=== PATIENT | female | born 1980 | race African-American/Black ===

== ENCOUNTER 2017-05-15 13:12 | Emergency (ER) | payer SELFPAY ==
[~2017-05-15] VITALS: Ht 175.3 cm; Wt 136.1 kg
[2017-05-15 13:50] VITALS: BP 151/66
[2017-05-15] MEDS ORDERED: IV NORMAL SALINE 1000ML BAG 1,000 ML IV SCH (14:30)
[2017-05-15 15:27] LABS: BASO # 0.1 x10^3/uL (0.0-0.2); BASO % 1 % (0-3); EOS % 1 % (0-3); HEMATOCRIT 35.7 % (36.0-47.0); HEMOGLOBIN 11.6 g/dL (12.0-15.5); LYMPH # 2.7 x10^3/uL (1.0-4.8); LYMPH % 38 % (24-48); MEAN CORPUSCULAR HEMOGLOBIN 26 pg (25-35); MEAN CORPUSCULAR HGB CONC 33 g/dL (31-37); MEAN CORPUSCULAR VOLUME 79 fL (79-100); MONO % 9 % (0-9); NEUT % 51 % (31-73); PLATELET COUNT 186 x10^3/uL (140-400); RED CELL DISTRIBUTION WIDTH 13.9 % (11.5-14.5); WHITE BLOOD COUNT 7.1 x10^3/uL (4.0-11.0)
[2017-05-15 15:38] LABS: CALCIUM 8.9 mg/dL (8.5-10.1); CREATININE 0.6 mg/dL (0.6-1.0); GFR 136.9; POTASSIUM 3.9 mmol/L (3.5-5.1)
--- NOTE | 2017-05-15 15:42 | RAD ---
Indication . Abdominal pain. Obstetrical ultrasound examination was performed. No prior imaging is available associated with this . There is a single, viable, IUP. heart rate of 153 was documented. The biparietal diameter of 5.9 cm, head circumference of 22.3 cm, abdominal circumference of 21 cm and femoral length of 4.4 cm are compatible with a gestational age of approximately 24 weeks 4 days. By sonographic analysis the expected date of confinement is 08/31/2017. The estimated weight is approximately 750 g. The amount of amniotic fluid appears normal. The placenta is predominantly fundal. The current presentation is vertex. The maternal cervix was not well demonstrated on this examination. There was a three-vessel cord. A 4 chambered heart was not confirmed. No gross anomalies were seen but a full survey was not performed. IMPRESSION: Single, viable, IUP of approximately 24 weeks 4 days gestation
[2017-05-15 15:44] LABS: ALBUMIN 2.9 g/dL (3.4-5.0); ALBUMIN/GLOBULIN RATIO 0.6 (1.0-1.7); TOTAL BILIRUBIN 0.1 mg/dL (0.2-1.0); TOTAL PROTEIN 7.5 g/dL (6.4-8.2)
[2017-05-15 16:17] LABS: BILIRUBIN,URINE NEGATIVE (NEG); GLUCOSE,URINE NEGATIVE (NEG); NITRITE,URINE NEGATIVE (NEG); PH,URINE 6.5; PROTEIN,URINE NEGATIVE (NEG-TRACE)
[2017-05-15 16:24] LABS: BACTERIA,URINE MODERATE /HPF (0-FEW); RBC,URINE 0 /HPF (0-2); SQUAMOUS EPITHELIAL CELL,UR MOD /LPF; TRICHOMONAS,URINE PRESENT
[2017-05-15] MEDS ORDERED: metroNIDAZOLE 500 MG TABLET PO ONE (16:45)
[2017-05-15] MEDS ORDERED: cefTRIAXone IM 250 MG VIAL IM ONE (17:00)
[2017-05-15] MEDS ORDERED: AZITHROMYCIN 250 MG TABLET. PO ONE (17:00)
[2017-05-15] MEDS ORDERED: PNV1TABL34 PO (17:06)
--- NOTE | 2017-05-15 17:33 | ED.ADGEN ---
Past Medical History Past Medical History: No Pertinent History Past Surgical History: Other Additional Past Surgical Histo: RT ANKLE SURGERY Additional Information: 1.5 PPD Alcohol Use: None Drug Use: None Adult General Chief Complaint Chief Complaint: ABDOMINAL PAIN IN HPI HPI Patient is a 37 year old woman, history of irregular periods, who presents to the emergency department with abdominal pain and vaginal spotting, with a positive test in the emergency department, which makes her . Patient states her last muscle. She believes was in November, but she has a history of irregularity as stated and offer and goes months without menses. Patient was not aware that she was . She states that this afternoon she began experiencing lower abdominal cramping, and spotting with bright red blood noted on toilet paper. Occasional white discharge. No passage of clots or fluid , states currently she describes mild abdominal cramping. She denies concerns for STI exposures, denies any injuries, any nausea or vomiting, any swelling extremities, any urinary complaints, any back or flank pain, any weakness, numbness, tingling, chest pain, shortness breath or other complaints. History of 4 previous complicated pregnancies. Does not currently have an POLLS OR SURVEYS INTERVIEWER, is not taking vitamins. Review of Systems Review of Systems Constitutional: Denies fever or chills. [] Eyes: Denies change in visual acuity. [] HENT: Denies nasal congestion or sore throat. [] Respiratory: Denies cough or shortness of breath. [] Cardiovascular: Denies chest pain or edema. [] GI: Denies abdominal pain, nausea, vomiting, bloody stools or diarrhea. [] : Denies dysuria. [] Musculoskeletal: Denies back pain or joint pain. [] Integument: Denies rash. [] Neurologic: Denies headache, focal weakness or sensory changes. [] Endocrine: Denies polyuria or polydipsia. [] Lymphatic: Denies swollen glands. [] Psychiatric: Denies depression or anxiety. [] Current Medications Current Medications Current Medications Medications (Trade) Dose Ordered Sig/Lynette Start Time Stop Time Status Last Admin Dose Admin Azithromycin (Zithromax) 1,000 mg 1X ONCE 05/15/17 17:00 05/15/17 17:01 DC 05/15/17 17:10 1,000 MG Ceftriaxone Sodium (Rocephin Im) 250 mg 1X ONCE 05/15/17 17:00 05/15/17 17:01 DC 05/15/17 17:10 250 MG Metronidazole (Flagyl) 2,000 mg 1X ONCE 05/15/17 16:45 05/15/17 16:47 DC 05/15/17 16:55 2,000 MG Sodium Chloride 1,000 ml @ 1,000 mls/hr Q1H 05/15/17 14:30 05/15/17 15:29 DC 05/15/17 15:26 1,000 MLS/HR Allergies Allergies Allergies Coded Allergies Type Severity Reaction Last Updated Verified No Known Drug Allergies 05/15/17 No Physical Exam Physical Exam Constitutional: Well developed, well nourished, no acute distress, non-toxic appearance. [] HENT: Normocephalic, atraumatic, bilateral external ears normal, oropharynx moist, no oral exudates, nose normal. [] Eyes: PERRLA, EOMI, conjunctiva normal, no discharge. [] Neck: Normal range of motion, no tenderness, supple, no stridor. [] Cardiovascular:Heart rate regular rhythm, no murmur, S1, S2, no rubs or gallops. [] Lungs & Thorax: Bilateral breath sounds clear to auscultation, no wheezing, rhonchi, rales. No chest wall crepitus or tenderness. [] Abdomen: Bowel sounds normal, soft, obese, mild tenderness to palpation in the pelvic region, no rebound, rigidity, no guarding, no masses, no pulsatile masses. [] Skin: Warm, dry, no erythema, no rash. [] Back: No tenderness, no CVA tenderness. [] Extremities: No tenderness, no cyanosis, no clubbing, ROM intact, no edema. Negative Homans sign. [] Neurologic: Alert and oriented X 3, normal motor function, normal sensory function, no focal deficits noted. [] Psychologic: Affect normal, judgement normal, mood normal. [] Pelvic examination: Normal-appearing external examination, bimanual examination reveals a closed internal os, small amount of white discharge noted on glove, patient comfortable during examination, but patient with no CMT, no adnexal tenderness or masses identified. Specimens taken without issue, normal- appearing nonfriable cervix. Current Patient Data Vital Signs Vital Signs Date Time Temp Pulse Resp B/P (MAP) Pulse Ox O2 Delivery O2 Flow Rate FiO2 05/15/17 13:50 98.3 93 20 151/66 (94) 98 Room Air 98.3 Lab Values Laboratory Tests Test 05/15/17 12:58 05/15/17 13:49 05/15/17 15:20 POC Urine HCG, Qualitative Hcg positive (Negative) Urine Collection Type Unknown Urine Color Yellow Urine Clarity Clear Urine pH 6.5 Urine Specific [place] 1.025 Urine Protein Negative mg/dL (NEG-TRACE) Urine Glucose (UA) Negative mg/dL (NEG) Urine Ketones (Stick) Negative mg/dL (NEG) Urine Blood Negative (NEG) Urine Nitrite Negative (NEG) Urine Bilirubin Negative (NEG) Urine Urobilinogen Dipstick 1.0 mg/dL (0.2 mg/dL) Urine Leukocyte Esterase Small (NEG) Urine RBC 0 /HPF (0-2) Urine WBC 1-4 /HPF (0-4) Urine Squamous Epithelial Cells Mod /LPF Urine Bacteria Moderate /HPF (0-FEW) Urine Mucus Mod /LPF Urine Trichomonas Present White Blood Count 7.1 x10^3/uL (4.0-11.0) Red Blood Count 4.50 x10^6/uL (3.50-5.40) Hemoglobin 11.6 g/dL (12.0-15.5) L Hematocrit 35.7 % (36.0-47.0) L Mean Corpuscular Volume 79 fL (79-100) Mean Corpuscular Hemoglobin 26 pg (25-35) Mean Corpuscular Hemoglobin Concent 33 g/dL (31-37) Red Cell Distribution Width 13.9 % (11.5-14.5) Platelet Count 186 x10^3/uL (140-400) Neutrophils (%) (Auto) 51 % (31-73) Lymphocytes (%) (Auto) 38 % (24-48) Monocytes (%) (Auto) 9 % (0-9) Eosinophils (%) (Auto) 1 % (0-3) Basophils (%) (Auto) 1 % (0-3) Neutrophils # (Auto) 3.6 x10^3uL (1.8-7.7) Lymphocytes # (Auto) 2.7 x10^3/uL (1.0-4.8) Monocytes # (Auto) 0.7 x10^3/uL (0.0-1.1) Eosinophils # (Auto) 0.1 x10^3/uL (0.0-0.7) Basophils # (Auto) 0.1 x10^3/uL (0.0-0.2) Sodium Level 138 mmol/L (136-145) Potassium Level 3.9 mmol/L (3.5-5.1) Chloride Level 104 mmol/L (98-107) Carbon Dioxide Level 23 mmol/L (21-32) Anion Gap 11 (6-14) Blood Urea Nitrogen 7 mg/dL (7-20) Creatinine 0.6 mg/dL (0.6-1.0) Estimated GFR (Cockcroft-Gault) 136.9 BUN/Creatinine Ratio 12 (6-20) Glucose Level 79 mg/dL (70-99) Calcium Level 8.9 mg/dL (8.5-10.1) Total Bilirubin 0.1 mg/dL (0.2-1.0) L Aspartate Amino Transferase (AST) 17 U/L (15-37) Alanine Aminotransferase (ALT) 17 U/L (14-59) Alkaline Phosphatase 59 U/L (46-116) Total Protein 7.5 g/dL (6.4-8.2) Albumin 2.9 g/dL (3.4-5.0) L Albumin/Globulin Ratio 0.6 (1.0-1.7) L Laboratory Tests 05/15/17 15:20 Laboratory Tests 05/15/17 15:20 Microbiology 05/15/17 Wet Prep - Final, Complete EKG EKG Not indicated. [] Radiology/Procedures Radiology/Procedures [][facility] [address] [place] [address] IMAGING REPORT Signed PATIENT: ROSIE WILKERSON ACCOUNT: [id number] : 1980 LOCATION: ER AGE: 37 SEX: F EXAM STATUS: REG ER ORD. PHYSICIAN: PREET SOLOMON DO REASON: + Preg/abd pain PROCEDURE: PREG MORE THAN OR EQ TO 14 WKS Indication . Abdominal pain. Obstetrical ultrasound examination was performed. No prior imaging is available associated with this . There is a single, viable, IUP. heart rate of 153 was documented. The biparietal diameter of 5.9 cm, head circumference of 22.3 cm, abdominal circumference of 21 cm and femoral length of 4.4 cm are compatible with a gestational age of approximately 24 weeks 4 days. By sonographic analysis the expected date of confinement is 08/31/2017. The estimated weight is approximately 750 g. The amount of amniotic fluid appears normal. The placenta is predominantly fundal. The current presentation is vertex. The maternal cervix was not well demonstrated on this examination. There was a three-vessel cord. A 4 chambered heart was not confirmed. No gross anomalies were seen but a full survey was not performed. IMPRESSION: Single, viable, IUP of approximately 24 weeks 4 days gestation DICTATED and SIGNED BY: RENA HOWELL MD DATE: 05/15/171536 CC: PREET SOLOMON DO; NO PCP ~ Course & Med Decision Making Course & Med Decision Making Pertinent Labs and Imaging studies reviewed. (See chart for details) Patient's laboratory studies and imaging did not reveal evidence of acutely concerning findings, patient noted be 24 weeks and 4 days on ultrasound. Patient has not yet become [facility] as stated, patient was noted to be positive for trichomoniasis on her urine. Wet prep was unremarkable. I did discuss the signs and patient, initially stated that she did not have any concerns for sexually transmitted infections, however after this information was relayed, patient was agreeable to receiving a. Treatment for chlamydia and gonorrhea, with ceftriaxone and azithromycin in the ED, and treatment for denies this with a 2 g dose of metronidazole. I did discuss treatment and above information with Dr. Palmer POLLS OR SURVEYS INTERVIEWER, patient is interested in receiving a tubal ligation after this delivery, he states that he'll follow with her in the office , his contact information was given. Patient was also given a prescription for vitamins, and a prescription for treatment with metronidazole seven- day course, for her partner, importance of following up with either a primary care provider, POLLS OR SURVEYS INTERVIEWER, or the health department for a full complement of STD testing for both the patient and her partner was discussed, along with avoidance of intercourse until they're cleared by their respective physicians. Patient voiced understanding and agreement with plan as stated, tolerating medications the ED without issue. Discharged home with instructions, prescriptions, and precautions as stated. Dragon Disclaimer Dragon Disclaimer This electronic medical record was generated, in whole or in part, using a voice recognition dictation system. Departure Impression: Primary Impression: Trichomoniasis Additional Impression: Vaginal bleeding in Disposition: HOME, SELF-CARE Condition: IMPROVED Scripts Pnv With Ca,No.72/Iron,Carb/Fa ( PLUS IRON TABLET) 1 Each Tablet 1 TAB PO DAILY, #90 TAB 3 Refills Prov: PREET SOLOMON DO 05/15/17 Problem Qualifiers PREET SOLOMON DO May 15, 2017 17:33
== END 2017-05-15 17:14 | disposition home or self-care (01) ==
LOC: ER 13:12
DX: O98.812 Other maternal infectious and parasitic diseases complicating pregnancy, second trimester (principal); A59.9 Trichomoniasis, unspecified; O46.92 Antepartum hemorrhage, unspecified, second trimester; O99.332 Smoking (tobacco) complicating pregnancy, second trimester; Z3A.24 24 weeks gestation of pregnancy
CPT/HCPCS: 76805; 80053; 81001; 81025; 85025; 86900; 86901; 87086; 96360; 96372; 99285; J0696; J7030; Q0111; Q0144; 36415; 87491; 87591

== ENCOUNTER 2017-08-03 11:35 | Observation (INO) | payer SELFPAY ==
[~2017-08-03 11:35] MED LIST: PNV1TABL34 PO
[2017-08-03] MEDS ORDERED: IV RINGERS,LACTATED 1000ML 1,000 ML IV SCH (12:12)
[2017-08-03 12:28] LABS: BILIRUBIN,URINE NEGATIVE (NEG); GLUCOSE,URINE NEGATIVE (NEG); NITRITE,URINE NEGATIVE (NEG); PH,URINE 7.5; PROTEIN,URINE NEGATIVE (NEG-TRACE)
[2017-08-03 12:32] LABS: BARBITURATES NEG (NEG); BENZODIAZEPINES NEG (NEG); CANNABINOIDS NEG (NEG); COCAINE NEG (NEG); METHADONE NEG (NEG); OPIATES NEG (NEG); PHENCYCLIDINE NEG (NEG)
[2017-08-03 12:37] LABS: BACTERIA,URINE FEW /HPF (0-FEW); RBC,URINE OCC /HPF (0-2); SQUAMOUS EPITHELIAL CELL,UR FEW /LPF
[2017-08-04 07:31] LABS: RPR REFLEX Non Reactive (Non Reactive)
[2017-08-04 14:25] LABS: HEP B SURFACE ABDY Non Reactive (.)
== END 2017-08-03 13:45 | disposition home or self-care (01) ==
LOC: 3 SO LND 11:35
PROVIDERS: ADMIT Obstetrics & Gynecology; ATTEND Obstetrics & Gynecology
DX: O26.893 Other specified pregnancy related conditions, third trimester (principal); R10.30 Lower abdominal pain, unspecified; Z3A.36 36 weeks gestation of pregnancy
CPT/HCPCS: 36415; 80307; 81001; 86593; 86706; 86762; 87653; G0378; G0379; G0479

== ENCOUNTER 2017-08-16 18:02 | Observation (INO) | payer OTHER ==
[2017-08-16] MEDS ORDERED: IV RINGERS,LACTATED 1000ML 1,000 ML IV SCH (18:23)
[2017-08-16 18:36] LABS: BILIRUBIN,URINE NEGATIVE (NEG); GLUCOSE,URINE NEGATIVE (NEG); NITRITE,URINE NEGATIVE (NEG); PH,URINE 6.5; PROTEIN,URINE NEGATIVE (NEG-TRACE); UROBILINOGEN,URINE 0.2 mg/dL (0.2 mg/dL)
[2017-08-16 18:46] LABS: BACTERIA,URINE FEW /HPF (0-FEW); SQUAMOUS EPITHELIAL CELL,UR MOD /LPF
[2017-08-16 18:51] LABS: BARBITURATES NEG (NEG); BENZODIAZEPINES NEG (NEG); CANNABINOIDS NEG (NEG); COCAINE NEG (NEG); METHADONE NEG (NEG); OPIATES NEG (NEG); PHENCYCLIDINE NEG (NEG)
== END 2017-08-16 19:48 | disposition home or self-care (01) ==
LOC: 3 SO LND 18:02
PROVIDERS: ADMIT Specialist; ATTEND Specialist
DX: O62.9 Abnormality of forces of labor, unspecified (principal); Z3A.38 38 weeks gestation of pregnancy
CPT/HCPCS: 80307; 81001; G0378; G0379; G0479

== ENCOUNTER 2017-08-24 22:22 | Observation (INO) | payer SELFPAY ==
[2017-08-24 22:52] LABS: BILIRUBIN,URINE NEGATIVE (NEG); GLUCOSE,URINE NEGATIVE (NEG); NITRITE,URINE NEGATIVE (NEG); PH,URINE 6.5; PROTEIN,URINE 100 mg/dL (NEG-TRACE)
[2017-08-24 22:58] LABS: BACTERIA,URINE MANY /HPF (0-FEW); RBC,URINE 0 /HPF (0-2)
[2017-08-24 22:59] LABS: BARBITURATES NEG (NEG); BENZODIAZEPINES NEG (NEG); CANNABINOIDS POS (NEG); COCAINE NEG (NEG); METHADONE NEG (NEG); OPIATES NEG (NEG); PHENCYCLIDINE NEG (NEG); SQUAMOUS EPITHELIAL CELL,UR FEW /LPF
[2017-08-24] MEDS ORDERED: IV RINGERS,LACTATED 1000ML 1,000 ML IV SCH (23:45)
--- NOTE | 2017-08-25 00:51 | RAD ---
Obstetric ultrasound limited: Reason for examination: with pain and pressure. Duodenum Thursday. No care. Check amniotic fluid, placenta, size and weight. Single viable intrauterine gestation is present. Placenta is located anterior with no evidence of previa or abruption. Placenta is a grade 3. activity is present with cardiac activity with a rate of 160 bpm. Fetus is in cephalic presentation. Amniotic fluid level is normal at 10 cm. Biparietal diameter is 9.26 cm corresponding to gestational age of 37 weeks 4 days. Head circumference is 34.26 cm corresponding to gestational age of 39 weeks 4 days. Abdominal circumference is 37.79 cm corresponding to gestational age of 41 weeks 5 days. Femur length is 7.84 cm corresponding to gestational age of 40 weeks 1 day. Head circumference to abdominal circumference ratio 0.91. Estimated weight is 9 lbs. 1 oz. Estimated gestational age is 39 weeks 5 days with estimated date of confinement of 08/26/2017. IMPRESSION: Single viable intrauterine gestation with a mean gestational age estimated at 39 weeks 5 days and estimated date of confinement of 08/26/2017. Fetus is in cephalic presentation. Placenta is anterior with no previa or abruption. Adequate amniotic fluid is present at 10 cm. weight is estimated at 9 lbs. 1 oz. Electronically signed by: Alma Falcon MD (08/25/2017 12:47 AM) [facility]
== END 2017-08-25 00:15 | disposition home or self-care (01) ==
LOC: 3 SO LND 22:22
PROVIDERS: ADMIT Obstetrics & Gynecology; ATTEND Obstetrics & Gynecology
DX: O62.9 Abnormality of forces of labor, unspecified (principal); Z3A.39 39 weeks gestation of pregnancy
CPT/HCPCS: 76815; 80307; 81001; 87086; G0378; G0379; G0479

== ENCOUNTER 2017-08-30 11:11 | Observation (INO) | payer SELFPAY ==
[~2017-08-30] VITALS: Ht 172.7 cm; Wt 166.0 kg
--- NOTE | 2017-08-30 12:38 | PDOC1 ---
OB - History Hx of Present Care: Limited Care Ultrasounds: Normal mid trimester US Obstetrical Complications: None Medical Complications: None Past Family/Social History * Past Medical, Surgical, Family and Obstetric Histories reviewed from chart. GBS Status: Positive OB - Chief Complaint & HPI Date of Admission: Date of Admission: Aug 30, 2017 at 11:11 Chief Complaint/History : 5 Para: 4 EGA: 39 Reason for admission: observation Indication for induction: post dates Admission Nurse Assessment Rev: Yes Problems: OB - Admission Exam Physical Exam HEENT: Normal Heart: Regular Rate Lungs: Clear Abdomen: Gravid, Non tender, Soft Extremities: Edema Reflexes: Normal Cervical Dilatation: Fingertip Effacement: 50% Station: -3 Membranes: Intact Heart Rate: Normal Accelerations: Accelerations Present Decelerations: No decelerations Contractions on Admission: >10 Minutes Apart Intensity: Mild Text A: 39wks + 6 days IUP Previous LGA infants P: Plan for U/S for PRETTY. If PRETTY low, then IOL started today. If PRETTY normal, then IOL tomorrow evening for post dates. GI GILMAN Jr, MD Aug 30, 2017 12:38
--- NOTE | 2017-08-30 14:09 | RAD ---
OB > 14 WKS W/TV History:Check PRETTY and weight Comparison: 08/24/2017 Findings:Multiple transabdominal sonographic images of the uterus are submitted. Biometry data are as follows: Abdominal circumference 36.3 cm corresponds with 40 weeks 2 days. Femur length 7.8 cm corresponds 40 weeks 1 day. Biparietal diameter 9.3 cm corresponds 37 weeks 6 days Head circumference 33.8 cm corresponding 38 weeks 6 days HC/AC ratio 0.93 Adjusted ultrasound age 39 weeks 2 days with estimated delivery date of 09/04/2017. Estimated weight 3869 g +/- 573 g. Cervix measured 3.95 cm in length. PRETTY is estimated at 13.3 cm. heart rate 137 bpm. Amniotic fluid volume is also subjectively within normal limits. anatomy was not evaluated. movement was noted. There is cephalic presentation. There is anterior and right lateral placenta. Adnexal regions are not demonstrated. Impression: 1.Amniotic fluid volume is within normal limits. Estimated weight was 3869 g +/- 573 g. There is cephalic presentation of the single intrauterine fetus.
[2017-08-30 14:12] LABS: BILIRUBIN,URINE SMALL (NEG); GLUCOSE,URINE NEGATIVE (NEG); NITRITE,URINE NEGATIVE (NEG); PROTEIN,URINE NEGATIVE (NEG-TRACE)
[2017-08-30 14:18] LABS: BACTERIA,URINE MODERATE /HPF (0-FEW); BARBITURATES NEG (NEG); BENZODIAZEPINES NEG (NEG); CANNABINOIDS NEG (NEG); COCAINE NEG (NEG); METHADONE NEG (NEG); OPIATES NEG (NEG); PHENCYCLIDINE NEG (NEG); RBC,URINE 0 /HPF (0-2); SQUAMOUS EPITHELIAL CELL,UR MOD /LPF
== END 2017-08-30 14:00 | disposition home or self-care (01) ==
LOC: 3 SO LND 11:11
PROVIDERS: ADMIT Obstetrics & Gynecology; ATTEND Obstetrics & Gynecology
DX: O62.9 Abnormality of forces of labor, unspecified (principal); Z3A.39 39 weeks gestation of pregnancy; O26.893 Other specified pregnancy related conditions, third trimester; R12 Heartburn
CPT/HCPCS: 76805; 76817; 80307; 81001; G0378; G0379; 87086; G0479

== ENCOUNTER 2018-02-07 10:21 | Emergency (ER) | payer OTHER ==
[2018-02-07 10:44] LABS: URINE HCG POC HCG NEGATIVE (Negative)
[2018-02-07 11:05] LABS: BILIRUBIN,URINE NEGATIVE (NEG); CLARITY,URINE CLEAR; COLOR,URINE AMBER; GLUCOSE,URINE NEGATIVE (NEG); NITRITE,URINE NEGATIVE (NEG); PROTEIN,URINE 30 mg/dL (NEG-TRACE); UROBILINOGEN,URINE 0.2 mg/dL (0.2 mg/dL)
[2018-02-07 11:12] LABS: BARBITURATES NEG (NEG); BENZODIAZEPINES NEG (NEG); CANNABINOIDS POS (NEG); COCAINE POS (NEG); METHADONE NEG (NEG); OPIATES NEG (NEG); PHENCYCLIDINE NEG (NEG)
[2018-02-07] MEDS: IV NORMAL SALINE 1000ML BAG 1,000 ML IV (11:13)
[2018-02-07] MEDS: ONDANSETRON PF 4 MG/2 ML VIAL. IV (11:13)
[2018-02-07] MEDS: FAMOTIDINE 20 MG TABLET. PO (11:13)
[2018-02-07 11:15] LABS: BACTERIA,URINE FEW /HPF (0-FEW); RBC,URINE RARE /HPF (0-2); SQUAMOUS EPITHELIAL CELL,UR FEW /LPF
[2018-02-07 11:19] LABS: ADD MAN DIFF? NO
[2018-02-07 11:23] LABS: AMPHETAMINE/METHAMPHETAMINE POS (NEG); ETHANOL, URINE NEG (NEG)
[2018-02-07 11:28] LABS: BASO % 1 % (0-3); EOS % 1 % (0-3); HEMATOCRIT 37.3 % (36.0-47.0); HEMOGLOBIN 12.5 g/dL (12.0-15.5); LYMPH # 2.9 x10^3/uL (1.0-4.8); LYMPH % 51 % (24-48); MEAN CORPUSCULAR HEMOGLOBIN 26 pg (25-35); MEAN CORPUSCULAR HGB CONC 34 g/dL (31-37); MEAN CORPUSCULAR VOLUME 78 fL (79-100); MONO # 0.5 x10^3/uL (0.0-1.1); MONO % 9 % (0-9); NEUT # 2.1 x10^3uL (1.8-7.7); NEUT % 38 % (31-73); PLATELET COUNT 225 x10^3/uL (140-400); RED BLOOD COUNT 4.78 x10^6/uL (3.50-5.40); RED CELL DISTRIBUTION WIDTH 12.9 % (11.5-14.5); WHITE BLOOD COUNT 5.7 x10^3/uL (4.0-11.0)
[2018-02-07 11:34] LABS: ANION GAP 8 (6-14); BLOOD UREA NITROGEN 14 mg/dL (7-20); BUN/CREATININE RATIO 14 (6-20); CALCIUM 9.4 mg/dL (8.5-10.1); CARBON DIOXIDE 28 mmol/L (21-32); CHLORIDE 104 mmol/L (98-107); GFR 75.9; GLUCOSE 126 mg/dL (70-99); POTASSIUM 3.4 mmol/L (3.5-5.1); SODIUM 140 mmol/L (136-145)
[2018-02-07 11:37] LABS: ETHANOL < 10 mg/dL (0-10)
[2018-02-07 11:39] LABS: ALBUMIN 3.3 g/dL (3.4-5.0); ALBUMIN/GLOBULIN RATIO 0.8 (1.0-1.7); ALK PHOS 74 U/L (46-116); ALT (SGPT) 24 U/L (14-59); AST (SGOT) 32 U/L (15-37); LIPASE 76 U/L (73-393); TOTAL BILIRUBIN 0.3 mg/dL (0.2-1.0); TOTAL PROTEIN 7.6 g/dL (6.4-8.2)
== END 2018-02-07 13:50 | disposition home or self-care (01) ==
LOC: ER 13:50
DX: N30.00 Acute cystitis without hematuria (principal); R42 Dizziness and giddiness; F12.10 Cannabis abuse, uncomplicated; F14.10 Cocaine abuse, uncomplicated; F15.10 Other stimulant abuse, uncomplicated
CPT/HCPCS: 36415; 80053; 80307; 81001; 81025; 83690; 85025; 96361; 96374; 99285-25; G0480; J2405; J7030

== ENCOUNTER 2020-05-14 19:56 | Emergency (ER) | payer MEDICAID, OTHER ==
[~2020-05-14] VITALS: Ht 172.7 cm; Wt 127.3 kg
[~2020-05-14 19:56] MED LIST changes: +ONDA4TAB10 SL; +SULF1TAB24 PO
[2020-05-14 21:18] LABS: BILIRUBIN,URINE NEGATIVE (NEG); CLARITY,URINE CLEAR; COLOR,URINE YELLOW; NITRITE,URINE NEGATIVE (NEG); PH,URINE 5.5 (<5.0-8.0); PROTEIN,URINE NEGATIVE (NEG-TRACE); UROBILINOGEN,URINE 0.2 mg/dL (0.2 mg/dL)
[2020-05-14 21:28] LABS: BACTERIA,URINE MODERATE /HPF (0-FEW); RBC,URINE 0 /HPF (0-2); SQUAMOUS EPITHELIAL CELL,UR FEW /LPF
[2020-05-14 21:30] VITALS: BP 158/81
--- NOTE | 2020-05-14 21:43 | PHYS DOC ---
Past Medical History Past Medical History: No Pertinent History Past Surgical History: Other Additional Past Surgical Histo: RT ANKLE SURGERY Smoking Status: Current Every Day Smoker Alcohol Use: None Drug Use: None General Adult EDM: Chief Complaint: SEXUALLY TRANSMITTED DISEASE HPI: HPI: Patient is a 40 year old female who presents with 1 day history of vaginal discharge and lower abdominal cramping. Symptoms are described as mild. Pain is nonradiating. Patient significant other was recently diagnosed with urethritis and told the patient about it today. Patient denies any fever vomiting. Patient denies any dysuria. Symptoms are worse with palpation. Review of Systems: Review of Systems: Constitutional: Denies fever or chills. [] Eyes: Denies change in visual acuity. [] HENT: Denies nasal congestion or sore throat. [] Respiratory: Denies cough or shortness of breath. [] Cardiovascular: Denies chest pain or edema. [] GI: Complains of lower abdominal pain but no nausea, vomiting, bloody stools or diarrhea. [] : Denies dysuria. But complains of vaginal discharge Musculoskeletal: Denies back pain or joint pain. [] Integument: Denies rash. [] Neurologic: Denies headache, focal weakness or sensory changes. [] Endocrine: Denies polyuria or polydipsia. [] Lymphatic: Denies swollen glands. [] Psychiatric: Denies depression or anxiety. [] Heart Score: Risk Factors: Risk Factors: DM, Current or recent (<one month) smoker, HTN, HLP, family history of CAD, obesity. Risk Scores: Score 0 - 3: 2.5% MACE over next 6 weeks - Discharge Home Score 4 - 6: 20.3% MACE over next 6 weeks - Admit for Clinical Observation Score 7 - 10: 72.7% MACE over next 6 weeks - Early Invasive Strategies Allergies: Allergies: Allergies Coded Allergies Type Severity Reaction Last Updated Verified No Known Drug Allergies 11/17/17 No Physical Exam: PE: Constitutional: Well developed, well nourished, no acute distress, non-toxic appearance. [] HENT: Normocephalic, atraumatic, bilateral external ears normal, no trismus, nose normal. [] Eyes: PERRLA, EOMI, conjunctiva normal, no discharge. [] Neck: Normal range of motion, no tenderness, supple, no stridor. [] Cardiovascular:Heart rate regular rhythm, peripheral pulses intact, cap refill brisk Lungs & Thorax: Bilateral breath sounds clear no respiratory distress Abdomen: soft, no tenderness, no masses, no pulsatile masses. [] exam: Preventive Medicine Officer present, mild cervical motion tender with mild vaginal discharge. External exam normal. Skin: Warm, dry, no erythema, no rash. [] Back: No tenderness, no CVA tenderness. [] Extremities: No tenderness, no cyanosis, no clubbing, ROM intact, no edema. [] Neurologic: Alert and oriented X 3, normal motor function, normal sensory function, no focal deficits noted. [] Psychologic: Affect normal, judgement normal, mood normal. [] Current Patient Data: Labs: Laboratory Tests Test 05/14/20 20:05 05/14/20 20:14 Urine Collection Type Void Urine Color Yellow Urine Clarity Clear Urine pH 5.5 (<5.0-8.0) Urine Specific [place] >=1.030 (1.000-1.030) Urine Protein Negative mg/dL (NEG-TRACE) Urine Glucose (UA) Negative mg/dL (NEG) Urine Ketones (Stick) Negative mg/dL (NEG) Urine Blood Negative (NEG) Urine Nitrite Negative (NEG) Urine Bilirubin Negative (NEG) Urine Urobilinogen Dipstick 0.2 mg/dL (0.2 mg/dL) Urine Leukocyte Esterase Negative (NEG) Urine RBC 0 /HPF (0-2) Urine WBC 11-20 /HPF (0-4) Urine Squamous Epithelial Cells Few /LPF Urine Bacteria Moderate /HPF (0-FEW) Urine Mucus Slight /LPF POC Urine HCG, Qualitative Hcg negative (Negative) Vital Signs: Vital Signs Date Time Temp Pulse Resp B/P (MAP) Pulse Ox O2 Delivery O2 Flow Rate FiO2 05/14/20 21:30 98.5 72 16 158/81 (106) 97 Room Air 98.5 EKG: EKG: [] Radiology/Procedures: Radiology/Procedures: [] Course & Med Decision Making: Course & Med Decision Making Pertinent Labs and Imaging studies reviewed. (See chart for details) [] 40-year-old female presents with vaginal discharge. Patient has trichomonas on her wet mount. Patient will be treated appropriately. Patient cover GC and chlamydia. Discussed with patient to make sure her partner is treated as well. Kishan Disclaimer: Kishan Disclaimer: This electronic medical record was generated, in whole or in part, using a voice recognition dictation system. Departure Departure Impression: Primary Impression: Trichomoniasis Disposition: 01 HOME, SELF-CARE Condition: STABLE Referrals: PCP 2-3 DAYS UNKNOWN PCP NAME (PCP) Patient Instructions: Trichomoniasis Additional Instructions: EMERGENCY DEPARTMENT GENERAL DISCHARGE INSTRUCTIONS THANK YOU for coming to [facility] Emergency Department (ED) today and trusting us with your care. We trust that you had a positive experience in our Emergency Department. If you wish to speak to the department Management you can contact the production department supervisor at . YOUR FOLLOW UP INSTRUCTIONS ARE FOLLOWS: Do you have a private doctor? If you do not have a private doctor, please ask for a resource list of physicians or clinics that may be able to assist you with follow up care. The Emergency Physician has interpreted your x-rays. The X-ray specialist will also review them. If there is a change in the findings you will be notified in 48 hours when at all possible. A lab test or lab culture may have been done, your results will be reviewed and you will be notified if you need a change in treatment. ADDITIONAL INSTRUCTIONS AND INFORMATION Your care today has been supervised by a physician who is specially trained in emergency care. Many problems require more than one evaluation for a complete diagnosis and treatment. We recommend that you schedule your follow up appointment as recommended to ensure complete treatment of your illness or injury. If you are unable to obtain follow up care and continue to have a problem, or if your condition worsens we recommend that you return to the ED. We are not able to safely determine your condition over the phone nor are we able to give sound medical advice over the phone. For these safety reasons, if you call for medical advice we will ask you to come to the ED for further evaluation If you have any questions regarding these discharge instructions please call the ED at . SAFETY INFORMATION In the interest of safety, wellness, and injury prevention; we encourage you to wear your seatbelt, if you smoke; quit smoking, and we encourage your family to use prot ective helmet for bicycling and other sporting events that present an increased risk for head injury. IF YOUR SYMPTOMS WORSEN OR NEW SYMPTOMS DEVELOP, OR YOU HAVE CONCERNS ABOUT YOUR CONDITION; OR IF YOUR CONDITION WORSENS WHILE YOU ARE WAITING FOR YOUR FOLLOW UP APPOINTMENT; EITHER CONTACT YOUR PRIMARY CARE DOCTOR, THE PHYSICIAN WHOSE NAME AND NUMBER YOU WERE GIVEN, OR RETURN TO THE ED IMMEDIATELY. Scripts Metronidazole (FLAGYL) 500 Mg Tablet 1 TAB PO TID, #30 TAB Prov: ED DAVID MD 05/14/20 Justicifation of Admission Dx: Justifications for Admission: Justification of Admission Dx: N/A ED DAVID MD May 14, 2020 21:42
[2020-05-14] MEDS ORDERED: ONDANSETRON ODT 4 MG TAB.RAPDIS. PO ONE (22:00)
[2020-05-14] MEDS ORDERED: AZITHROMYCIN 250 MG TABLET. PO ONE (22:00)
[2020-05-14] MEDS ORDERED: cefTRIAXone IM 250 MG VIAL IM ONE (22:00)
[2020-05-14] MEDS ORDERED: METR500T PO (22:22)
[2020-05-16 22:09] LABS: GC PROBE Negative (Negative)
== END 2020-05-14 22:30 | disposition home or self-care (01) ==
LOC: ER 19:56
DX: A59.9 Trichomoniasis, unspecified (principal); F17.200 Nicotine dependence, unspecified, uncomplicated
CPT/HCPCS: 81001; 81025; 87086; 87491; 87591; 96372; 99283; J0696; Q0111

== ENCOUNTER 2020-07-24 12:16 | Emergency (ER) | payer MEDICAID ==
[~2020-07-24] VITALS: Ht 170.2 cm; Wt 159.0 kg
[~2020-07-24 12:16] MED LIST changes: +METR500T PO
[2020-07-24 14:04] LABS: BASO % 1 % (0-3); EOS # 0.1 x10^3/uL (0.0-0.7); EOS % 2 % (0-3); HEMATOCRIT 42.6 % (36.0-47.0); HEMOGLOBIN 14.1 g/dL (12.0-15.5); LYMPH # 2.8 x10^3/uL (1.0-4.8); LYMPH % 44 % (24-48); MEAN CORPUSCULAR HEMOGLOBIN 26 pg (25-35); MEAN CORPUSCULAR HGB CONC 33 g/dL (31-37); MEAN CORPUSCULAR VOLUME 79 fL (79-100); MONO # 0.6 x10^3/uL (0.0-1.1); MONO % 10 % (0-9); NEUT # 2.8 x10^3/uL (1.8-7.7); NEUT % 44 % (31-73); PLATELET COUNT 209 x10^3/uL (140-400); RED BLOOD COUNT 5.37 x10^6/uL (3.50-5.40); RED CELL DISTRIBUTION WIDTH 13.8 % (11.5-14.5); WHITE BLOOD COUNT 6.3 x10^3/uL (4.0-11.0)
[2020-07-24 14:08] LABS: PROTHROMBIN TIME PATIENT 12.8 SEC (11.7-14.0)
[2020-07-24 14:12] LABS: BILIRUBIN,URINE NEGATIVE (NEG); CLARITY,URINE CLEAR; COLOR,URINE YELLOW; NITRITE,URINE NEGATIVE (NEG); PH,URINE 5.5 (<5.0-8.0); PROTEIN,URINE NEGATIVE (NEG-TRACE); UROBILINOGEN,URINE 0.2 mg/dL (0.2 mg/dL)
[2020-07-24 14:13] LABS: CALCIUM 9.7 mg/dL (8.5-10.1); CREATININE 0.7 mg/dL (0.6-1.0); GFR 112.7
[2020-07-24 14:19] LABS: ALBUMIN 3.5 g/dL (3.4-5.0); ALBUMIN/GLOBULIN RATIO 0.7 (1.0-1.7); TOTAL BILIRUBIN 0.2 mg/dL (0.2-1.0); TOTAL PROTEIN 8.4 g/dL (6.4-8.2)
[2020-07-24 14:20] LABS: BACTERIA,URINE MODERATE /HPF (0-FEW)
[2020-07-24 14:22] LABS: RBC,URINE OCC /HPF (0-2); TRICHOMONAS,URINE PRESENT
[2020-07-24 14:40] LABS: PLT ESTIMATE ADEQUATE (ADEQUATE)
--- NOTE | 2020-07-24 14:43 | RAD ---
INDICATION: Reason: , bleeding / Spl. Instructions: / History: COMPARISON: None. TECHNIQUE: Grayscale and color ultrasound images uterus and adnexa. Transabdominal and transvaginal images obtained. Transvaginal images were needed to better visualize structures that were limited on transabdominal imaging. FINDINGS: The bilateral ovaries are excluded by the overlying structures. Intrauterine gestational sac is identified with mean diameter of 25 mm. No pole is seen at this time. Too early in to adequately assess the placenta. Cystic structure near cervix could be small nabothian cysts. Small amount of debris within the endometrial stripe. IMPRESSION: * Intrauterine gestational sac is identified without a definite pole seen at this time. This could be secondary to early gestational age but a follow-up will be needed to ensure that there is development of a pole to ensure that this is not secondary to early failure. Electronically signed by: Sal Duque MD (07/24/2020 2:40 PM) [id number]
[2020-07-24] MEDS ORDERED: metroNIDAZOLE 500 MG TABLET PO ONE (14:45)
[2020-07-24] MEDS ORDERED: ONDANSETRON ODT 4 MG TAB.RAPDIS. PO ONE (14:45)
--- NOTE | 2020-07-24 14:52 | PHYS DOC ---
Past Medical History Past Medical History: No Pertinent History (EHSAN WESTON PLYWOOD SCARFER TENDER) Past Surgical History: Other Additional Past Surgical Histo: RT ANKLE SURGERY (EHSAN WESTON PLYWOOD SCARFER TENDER) Smoking Status: Current Every Day Smoker Alcohol Use: None Drug Use: None (EHSAN WESTON APRN) General Adult EDM: Chief Complaint: VAGINAL BLEEDING HPI: HPI: Patient is a 40 year old female who presents with light vaginal bleeding that was red in color yesterday but no longer bleeding today. She states that only used 1 pad yesterday and it was never soaked. She states she is already seen Dr. Palmer and he has tested her for STDs. Her last menstrual period was May 19. When looking back in the computer she had STD check on May 14 and it was negative. Patient states she has no abnormal vaginal discharge or smell. She denies any concerns. Patient does have a appointment with Dr. Palmer next week on the . She also has low mid abdominal pain that she rates a 7 out of 10 but states she has not taken any pain medications. Patient rates her aching lower abdominal pain a 7 out of 10. Patient is G6, P5. She is a history of being a smoker. (EHSAN WESTON PLYWOOD SCARFER TENDER) Review of Systems: Review of Systems: Constitutional: Denies fever or chills. [] Eyes: Denies change in visual acuity. [] HENT: Denies nasal congestion or sore throat. [] Respiratory: Denies cough or shortness of breath. [] Cardiovascular: Denies chest pain or edema. [] GI: + abdominal pain, denies nausea, vomiting, bloody stools or diarrhea. [] : Denies dysuria. Vaginal spotting. [] Musculoskeletal: Denies back pain or joint pain. [] Integument: Denies rash. [] Neurologic: Denies headache, focal weakness or sensory changes. [] Endocrine: Denies polyuria or polydipsia. [] Lymphatic: Denies swollen glands. [] Psychiatric: Denies depression or anxiety. [] (EHSAN WESTON PLYWOOD SCARFER TENDER) Heart Score: Risk Factors: Risk Factors: DM, Current or recent (<one month) smoker, HTN, HLP, family history of CAD, obesity. Risk Scores: Score 0 - 3: 2.5% MACE over next 6 weeks - Discharge Home Score 4 - 6: 20.3% MACE over next 6 weeks - Admit for Clinical Observation Score 7 - 10: 72.7% MACE over next 6 weeks - Early Invasive Strategies (EHSAN WESTON APRN) Current Medications: Current Medications Medications (Trade) Dose Ordered Sig/Lynette Start Time Stop Time Status Last Admin Dose Admin Metronidazole (Flagyl) 2,000 mg 1X ONCE 07/24/20 14:45 07/24/20 14:46 UNV Ondansetron HCl (Zofran Odt) 4 mg 1X ONCE 07/24/20 14:45 07/24/20 14:46 UNV (EHSAN WESTON APRN) Allergies: Allergies: Allergies Coded Allergies Type Severity Reaction Last Updated Verified No Known Drug Allergies 11/17/17 No (EHSAN WESTON APRN) Physical Exam: PE: Constitutional: Well developed, well nourished, no acute distress, non-toxic appearance. [] HENT: Normocephalic, atraumatic, bilateral external ears normal, oropharynx moist, no oral exudates, nose normal. [] Eyes: PERRLA, EOMI, conjunctiva normal, no discharge. [] Neck: Normal range of motion, no tenderness, supple, no stridor. [] Cardiovascular:Heart rate regular rhythm, no murmur [] Lungs & Thorax: Bilateral breath sounds clear to auscultation [] Abdomen: Bowel sounds normal, soft, no tenderness, no masses, no pulsatile masses. [] Skin: Warm, dry, no erythema, no rash. [] Back: No tenderness, no CVA tenderness. [] Extremities: No tenderness, no cyanosis, no clubbing, ROM intact, no edema. [] Neurologic: Alert and oriented X 3, normal motor function, normal sensory function, no focal deficits noted. [] Psychologic: Affect normal, judgement normal, mood normal. [] Normal physical exam (EHSAN WESTON APRN) Current Patient Data: Labs: Laboratory Tests Test 07/24/20 12:54 07/24/20 13:05 07/24/20 13:40 Urine Collection Type Unknown Urine Color Yellow Urine Clarity Clear Urine pH 5.5 (<5.0-8.0) Urine Specific Morrison >=1.030 (1.000-1.030) Urine Protein Negative mg/dL (NEG-TRACE) Urine Glucose (UA) Negative mg/dL (NEG) Urine Ketones (Stick) Negative mg/dL (NEG) Urine Blood Small (NEG) Urine Nitrite Negative (NEG) Urine Bilirubin Negative (NEG) Urine Urobilinogen Dipstick 0.2 mg/dL (0.2 mg/dL) Urine Leukocyte Esterase Trace (NEG) Urine RBC Occ /HPF (0-2) Urine WBC 5-10 /HPF (0-4) Urine Squamous Epithelial Cells Many /LPF Urine Bacteria Moderate /HPF (0-FEW) Urine Mucus Marked /LPF Urine Trichomonas Present POC Urine HCG, Qualitative Hcg positive (Negative) White Blood Count 6.3 x10^3/uL (4.0-11.0) Red Blood Count 5.37 x10^6/uL (3.50-5.40) Hemoglobin 14.1 g/dL (12.0-15.5) Hematocrit 42.6 % (36.0-47.0) Mean Corpuscular Volume 79 fL (79-100) Mean Corpuscular Hemoglobin 26 pg (25-35) Mean Corpuscular Hemoglobin Concent 33 g/dL (31-37) Red Cell Distribution Width 13.8 % (11.5-14.5) Platelet Count 209 x10^3/uL (140-400) Neutrophils (%) (Auto) 44 % (31-73) Lymphocytes (%) (Auto) 44 % (24-48) Monocytes (%) (Auto) 10 % (0-9) H Eosinophils (%) (Auto) 2 % (0-3) Basophils (%) (Auto) 1 % (0-3) Neutrophils # (Auto) 2.8 x10^3/uL (1.8-7.7) Lymphocytes # (Auto) 2.8 x10^3/uL (1.0-4.8) Monocytes # (Auto) 0.6 x10^3/uL (0.0-1.1) Eosinophils # (Auto) 0.1 x10^3/uL (0.0-0.7) Basophils # (Auto) 0.0 x10^3/uL (0.0-0.2) Prothrombin Time 12.8 SEC (11.7-14.0) Prothrombin Time INR 1.0 (0.8-1.1) Sodium Level 137 mmol/L (136-145) Potassium Level 4.0 mmol/L (3.5-5.1) Chloride Level 103 mmol/L (98-107) Carbon Dioxide Level 24 mmol/L (21-32) Anion Gap 10 (6-14) Blood Urea Nitrogen 11 mg/dL (7-20) Creatinine 0.7 mg/dL (0.6-1.0) Estimated GFR (Cockcroft-Gault) 112.7 BUN/Creatinine Ratio 16 (6-20) Glucose Level 74 mg/dL (70-99) Calcium Level 9.7 mg/dL (8.5-10.1) Total Bilirubin 0.2 mg/dL (0.2-1.0) Aspartate Amino Transferase (AST) 20 U/L (15-37) Alanine Aminotransferase (ALT) 23 U/L (14-59) Alkaline Phosphatase 65 U/L (46-116) Total Protein 8.4 g/dL (6.4-8.2) H Albumin 3.5 g/dL (3.4-5.0) Albumin/Globulin Ratio 0.7 (1.0-1.7) L Laboratory Tests 07/24/20 13:40 Laboratory Tests 07/24/20 13:40 Vital Signs: Vital Signs Date Time Temp Pulse Resp B/P (MAP) Pulse Ox O2 Delivery O2 Flow Rate FiO2 07/24/20 12:50 98.2 71 18 121/60 (80) 100 Room Air 98.2 (EHSAN WESTON APRN) EKG: EKG: [] (EHSAN WESTON APRN) Radiology/Procedures: Radiology/Procedures: [] Impression: [facility] [address] [place], [place] [id number] IMAGING REPORT Signed PATIENT: ROSIE WILKERSON LACCOUNT: [id number] : 1980 LOCATION: ER AGE: 40 SEX: F EXAM STATUS: REG ER ORD. PHYSICIAN: EHSAN WESTON APRN REASON: , bleeding PROCEDURE: OB < 14 WKS INDICATION: Reason: , bleeding / Spl. Instructions: / History: COMPARISON: None. TECHNIQUE: Grayscale and color ultrasound images uterus and adnexa. Transabdominal and transvaginal images obtained. Transvaginal images were needed to better visualize structures that were limited on transabdominal imaging. FINDINGS: The bilateral ovaries are excluded by the overlying structures. Intrauterine gestational sac is identified with mean diameter of 25 mm. No pole is seen at this time. Too early in to adequately assess the placenta. Cystic structure near cervix could be small nabothian cysts. Small amount of debris within the endometrial stripe. IMPRESSION: * Intrauterine gestational sac is identified without a definite pole seen at this time. This could be secondary to early gestational age but a follow-up will be needed to ensure that there is development of a pole to ensure that this is not secondary to early failure. Electronically signed by: Blossom Anand MD (07/24/2020 2:40 PM) [id number] DICTATED and SIGNED BY: BLOSSOM ANAND MD DATE: 07/24/201439 (EHSAN WESTON APRN) Course & Med Decision Making: Course & Med Decision Making Pertinent Labs and Imaging studies reviewed. (See chart for details) See HPI. Alert and oriented x4. Speaks in full complete sentences. Ambulatory to steady gait. Abdomen is soft and nontender. Vital signs within normal limits. Patient denies chest pain, shortness of air, nausea, vomiting, diarrhea, fever, dizziness, headache, vaginal discharge. Patient's urinalysis shows trichomonas. She will treated with metronidazole 2 g in the emergency room. I have sent the patient's urine off for chlamydia gonorrhea. Patient states she would also like to be treated for chlamydia and gonorrhea after I told her of the trichomonas finding. I have called and spoken to Dr. Palmer who states that the patient with her hCG that high should have a pole and a heartbeat. He states she most likely has a blighted ovum. He states that she needs a D&C. He states for her to come into the office this coming Thursday between 9 and 10 AM. He states to go ahead and treat her as planned for the chlamydia and gonorrhea and the trichomonas. US IMPRESSION: * Intrauterine gestational sac is identified without a definite pole seen at this time. This could be secondary to early gestational age but a follow-up will be needed to ensure that there is development of a pole to ensure that this is not secondary to early failure. Pelvic Exam: Integrated Pest Management Technician present Abdomen: Nontender External Genitalia: Normal Skin Speculum: Normal vaginal mucosa, White cervical discharge Bimanual: No adnexal masses or tenderness, No CMT, Cervical OS closed [] (EHSAN WESTON APRN) Dragon Disclaimer: Dragon Disclaimer: This electronic medical record was generated, in whole or in part, using a voice recognition dictation system. (EHSAN WESTON APRN) Departure Departure Impression: Primary Impression: Urinary tract infection Qualified Codes: N30.01 - Acute cystitis with hematuria Additional Impressions: Vaginal bleeding in Trichomoniasis Blighted ovum Disposition: HOME SELF CARE/HOMELESS Condition: STABLE Referrals: UNKNOWN PCP NAME (PCP) GI PALMER Jr, MD Patient Instructions: Blighted Ovum, Trichomoniasis, Urinary Tract Infection, [id number], Vaginal Bleeding During , [id number] Additional Instructions: Follow-up with Dr. Palmer this coming Thursday between 9 and 10 AM. Drink plenty of fluids. Take medication as prescribed. Scripts Cephalexin (KEFLEX) 500 Mg Capsule 1 CAP PO BID for 7 Days, #14 CAP 0 Refills Prov: EHSAN WESTON APRN 07/24/20 Attending Signature Attending Signature I have reviewed the non-physician practitioner's documentation, personally taken the patient's history, performed an exam and agree with the physical findings, clinical impression, and management plan. (MELINA FRYE DO) EHSAN WESTON APRN Jul 24, 2020 14:52 MELINA FRYE DO Jul 24, 2020 15:55
[2020-07-24] MEDS ORDERED: CEPH-264 PO (14:56)
[2020-07-24] MEDS ORDERED: cefTRIAXone IM 250 MG VIAL IM ONE (15:00)
[2020-07-24] MEDS ORDERED: AZITHROMYCIN 250 MG TABLET. PO ONE (15:00)
[2020-07-24 15:21] VITALS: BP 134/81
== END 2020-07-24 15:41 | disposition home or self-care (01) ==
LOC: ER 12:16
DX: O23.11 Infections of bladder in pregnancy, first trimester (principal); A59.9 Trichomoniasis, unspecified; O08.9 Unspecified complication following an ectopic and molar pregnancy; O02.0 Blighted ovum and nonhydatidiform mole; O99.331 Smoking (tobacco) complicating pregnancy, first trimester; Z3A.08 8 weeks gestation of pregnancy
CPT/HCPCS: 36415; 76801; 80053; 81001; 81025; 84702; 85025; 85610; 87086; 87491; 87591; 96372; 99285; J0696

== ENCOUNTER → 2020-07-30 | Outpatient (CLI) | payer MEDICAID ==
[2020-07-24 15:21] VITALS: BP 134/81
[~2020-07-30] MED LIST changes: +CEPH-264 PO
== END ==
LOC: LAB 13:48
PROVIDERS: ATTEND Obstetrics & Gynecology
DX: Z01.812 Encounter for preprocedural laboratory examination (principal); Z20.828 Contact with and (suspected) exposure to other viral communicable diseases; O02.0 Blighted ovum and nonhydatidiform mole; Z3A.00 Weeks of gestation of pregnancy not specified
CPT/HCPCS: U0003

== ENCOUNTER 2020-08-02 11:12 | Day surgery (SDC) | payer MEDICAID ==
[~2020-08-02] VITALS: Ht 172.7 cm; Wt 162.0 kg
[~2020-08-02 11:12] MED LIST changes: +HYDROmorphone 2 MG/ML VIAL IV PRN; +IV RINGERS,LACTATED 1000ML 1,000 ML IV SCH; +LIDOCAINE 1% PF 2 ML VIAL. ID PRN; +MORPHINE SULFATE 2 MG/ML VIAL. IV PRN; +ONDANSETRON PF 4 MG/2 ML VIAL. IV PRN; +PROCHLORPERAZINE 10 MG/2 ML VIAL. IV PRN; +ceFAZolin SODIUM 3 GM in IV DEXTROSE 5% 100ML 100 ML IV PRN; +fentaNYL PF VIAL 100 MCG/2 ML VIAL IV PRN
[2020-08-02] MEDS ORDERED: VASOPRESSIN 20 UNIT/ML VIAL. ONE (11:33)
[2020-08-02] MEDS ORDERED: fentaNYL PF VIAL 100 MCG/2 ML VIAL ONE ×2 (11:33→12:48)
[2020-08-02] MEDS ORDERED: MIDAZOLAM HCL/PF 2 MG/2 ML VIAL. ONE (11:33)
[2020-08-02] MEDS ORDERED: OXYTOCIN 10 UNIT/ML VIAL. ONE (11:33)
[2020-08-02] MEDS ORDERED: ONDANSETRON PF 4 MG/2 ML VIAL. ONE (11:34)
[2020-08-02] MEDS ORDERED: PROPOFOL 10 MG/ML (20ML) VIAL. IV ONE (11:34)
[2020-08-02] MEDS ORDERED: LIDOCAINE 2% PF 5 ML VIAL. ONE (11:34)
[2020-08-02] MEDS ORDERED: DEXAMETHASONE SOD PHOS 4 MG/ML VIAL ONE (11:34)
[2020-08-02] MEDS ORDERED: SEVOFLURANE 31 TO 60 MINUTES. IH ONE (12:18)
--- NOTE | 2020-08-02 12:21 | PDOC ---
BRIEF OPERATIVE NOTE Date: Aug 02, 2020 Pre-Op Diagnosis Blighted ovum Post-Op Diagnosis Same Procedure Performed Suction D&C Surgeon Dr. Palmer Anesthesia Type: General Blood Loss 50 ml Specimens Obtained POC Findings missed and POC Complications none Operative Note see dictation GI PALMER Jr, MD Aug 02, 2020 12:21
--- NOTE | 2020-08-02 12:23 | DISCH ---
DISCHARGE INSTRUCTIONS Condition on Discharge Condition on Discharge: Stable Activity After Discharge Activity Instructions for Disc: Activity as tolerated Lifting Instructions after Dis: No heavy lifting, No pulling or pushing, Do not lift >10 pounds Driving Instructions after Dis: Do not drive today Weight Bearing Status after Di: As tolerated Diet after Discharge Diet after Discharge: Regular Diet Texture: Regular Contacting the DRLima after DC Call your doctor for: Concerns you may have Follow-Up Follow up with: Dr. Palmer in 1 wk Treatment/Equipment after DC Adaptive Equipment Issued: None GI PALMER Jr, MD Aug 02, 2020 12:22
[2020-08-02] MEDS ORDERED: KETOROLAC 30 MG/ML VIAL. ONE (12:30)
--- NOTE | 2020-08-02 12:35 | OP ---
DATE OF SURGERY: PREOPERATIVE DIAGNOSIS: Blighted ovum. POSTOPERATIVE DIAGNOSIS: Blighted ovum. PROCEDURE: Suction D and C. SURGEON: Zach Palmer MD. ANESTHESIA: GETA. ESTIMATED BLOOD LOSS: 50 mL. COMPLICATIONS: None. FINDINGS: Products of conception. SUMMARY: A 40-year-old female with missed confirmed by ultrasound and falling hCG levels. The patient was counseled on risks, benefits and expectations of suction D and C for blighted ovum and voiced clear understanding to proceed. DESCRIPTION OF PROCEDURE: The patient was taken to surgery suite and placed in dorsal lithotomy position. She was prepped with Betadine solution and draped in sterile fashion. After adequate anesthesia, weighted speculum and curved [place] placed vaginally. Anterior lip of the cervix grasped with single tooth tenaculum. Cervix was dilated with Hegar dilators up to size 9. The 8 mm curved tip suction curette was then passed using a suction of 60 mmHg, removed products of conception and blood products. When rotated in a circumferential manner, sharp curettage took place in a circumferential manner until a fine gritty surface was palpated. Suction curette was passed once again to remove additional products of conception and blood products. The single tooth tenaculum and weighted speculum then removed. The uterus was palpated firm. Cervix was hemostatic. The patient tolerated the procedure well and was taken to recovery room in stable condition. Sponge and needle count correct x 3. ZACH PALMER MD DR: ISRA/julienne JOB#: [id number] / [id number]
[2020-08-02] MEDS: fentaNYL PF VIAL 100 MCG/2 ML VIAL IV PRN ×2 (12:51→13:08)
[2020-08-02] MEDS ORDERED: OXYC-325 PO (13:13)
[2020-08-02] MEDS ORDERED: oxyCODONE/APAP 5/325 1 TAB TABLET PO PRN (13:15)
[2020-08-02] MEDS ORDERED: oxyCODONE/APAP 5/325 1 TAB TABLET PO ONE (13:15)
[2020-08-02 13:40] VITALS: BP 139/55
--- NOTE | 2020-08-09 13:13 | PATHOLOGY ---
[facility] Accession Number: [id number] . 01 Material submitted: . PART A: product of conception - PRODUCTS OF CONCEPTION PART B: product of conception - PRODUCTS OF CONCEPTION TELFA . 01 Clinical history: . BLIGHTED OVUM . 02 Diagnosis: A. Uterus "products of conception": - Immature, focally hydropic chorionic villi and trophoblastic tissue, consistent with hydropic abortus. . B. Uterus "products of conception", excision: - Decidual cast with blood and fibrin; negative for malignancy. . (MELQUIADES:zackery; 08/06/2020) MBR 08/09/2020 1209 Local . 02 Electronically signed: . Tangela Holguin MD, Pathologist NPI- [id number] . 01 Gross description: . A. The specimen is received in formalin, labeled "[place], products of conception #1". Received are multiple segments of pink-gamez to pink-jeffrey soft tissue admixed with blood coagulum and spongiform tissue measuring 8.5 x 6.1 x 1.8 cm in aggregate dimensions. or embryonic tissue is not grossly identified. Vesicular structures are absent. The specimen is submitted representatively in cassettes A1 through A3. . B. The specimen is received in formalin, labeled "[place], products of conception #2". Received is a segment of pink-gamez soft tissue measuring 1.4 x 1.0 x 0.3 cm in greatest dimensions. The specimen is submitted entirely in cassette B1. (CAA; 08/03/2020) QAC/QAC 08/03/2020 1046 Local . 02 Pathologist provided ICD-10: O02.0 . 02 CPT . 814106, 822750 Specimen Comment: A courtesy copy of this report has been sent to [phone] Specimen Comment: Report sent to Performed at: [address] [facility] [address], [place], [place] [id number] MD Osito Russo MD Phone: [phone] Performed at: 02 [facility] [address] [address], [place], [place] [id number] MD Larry Montes MD Phone: [phone]
== END 2020-08-02 14:15 | disposition home or self-care (01) ==
LOC: SURG 11:12
PROVIDERS: ATTEND Obstetrics & Gynecology
DX: O02.0 Blighted ovum and nonhydatidiform mole (principal); F17.210 Nicotine dependence, cigarettes, uncomplicated
CPT/HCPCS: 59812; A7015; J1100; J1885; J2250; J2405; J2704; J3010; J2590; J3490

== ENCOUNTER 2020-12-11 13:49 | Emergency (ER) | payer SELFPAY ==
[~2020-12-11] VITALS: Ht 170.2 cm; Wt 154.5 kg
[~2020-12-11 13:49] MED LIST changes: -HYDROmorphone 2 MG/ML VIAL IV PRN; -IV RINGERS,LACTATED 1000ML 1,000 ML IV SCH; -LIDOCAINE 1% PF 2 ML VIAL. ID PRN; -MORPHINE SULFATE 2 MG/ML VIAL. IV PRN; -ONDANSETRON PF 4 MG/2 ML VIAL. IV PRN; +OXYC-325 PO; -PROCHLORPERAZINE 10 MG/2 ML VIAL. IV PRN; -ceFAZolin SODIUM 3 GM in IV DEXTROSE 5% 100ML 100 ML IV PRN; -fentaNYL PF VIAL 100 MCG/2 ML VIAL IV PRN
[2020-12-11 14:35] LABS: BILIRUBIN,URINE NEGATIVE (NEG); CLARITY,URINE CLEAR; COLOR,URINE YELLOW; NITRITE,URINE NEGATIVE (NEG); PROTEIN,URINE NEGATIVE (NEG-TRACE)
[2020-12-11] MEDS ORDERED: IV NORMAL SALINE 1000ML BAG 1,000 ML IV ONE (14:45)
[2020-12-11 14:50] LABS: BARBITURATES NEG (NEG); BENZODIAZEPINES NEG (NEG); CANNABINOIDS POS (NEG); COCAINE NEG (NEG); METHADONE NEG (NEG); OPIATES NEG (NEG); PHENCYCLIDINE NEG (NEG)
[2020-12-11 14:53] LABS: AMPHETAMINE/METHAMPHETAMINE NEG (NEG)
--- NOTE | 2020-12-11 14:55 | PHYS DOC ---
Past Medical History Past Medical History: No Pertinent History Past Surgical History: Other Additional Past Surgical Histo: RT ANKLE SURGERY Smoking Status: Current Every Day Smoker Alcohol Use: None Drug Use: None General Adult EDM: Chief Complaint: VOMITING IN HPI: HPI: Patient is a 40 year old female who presents with states that for the last week she has had dizziness and vomiting and some vaginal spotting. She states she does not have any concerns for sexually transmitted diseases but would like to be checked. Patient states that she does have some urinary urgency but no pain. Her last menstrual period was 2 months ago. She states that she is also been working a lot of hours is that she has not been able to drink enough water. Patient denies abdominal pain, diarrhea, fever, back pain, headache, vision change, numbness or tingling, focal weakness, chest pain, shortness of breath, calf pain, control use, swelling of extremities. Patient has a history of smoking, blighted ovum and D&C. Review of Systems: Review of Systems: Constitutional: Denies fever or chills. [] Eyes: Denies change in visual acuity. [] HENT: Denies nasal congestion or sore throat. [] Respiratory: Denies cough or shortness of breath. [] Cardiovascular: Denies chest pain or edema. [] GI: Denies abdominal pain. + nausea, +vomiting, denies bloody stools or diarrhea. [] : Denies dysuria. + Urinary frequency [] Musculoskeletal: Denies back pain or joint pain. [] Integument: Denies rash. [] Neurologic: Denies headache, focal weakness or sensory changes. + Lightheadedness [] Endocrine: Denies polyuria or polydipsia. [] Lymphatic: Denies swollen glands. [] Psychiatric: Denies depression or anxiety. [] Heart Score: C/O Chest Pain: N/A Risk Factors: Risk Factors: DM, Current or recent (<one month) smoker, HTN, HLP, family history of CAD, obesity. Risk Scores: Score 0 - 3: 2.5% MACE over next 6 weeks - Discharge Home Score 4 - 6: 20.3% MACE over next 6 weeks - Admit for Clinical Observation Score 7 - 10: 72.7% MACE over next 6 weeks - Early Invasive Strategies Current Medications: Current Medications Medications (Trade) Dose Ordered Sig/Lynette Start Time Stop Time Status Last Admin Dose Admin Sodium Chloride 1,000 ml @ 1,000 mls/hr 1X ONCE 12/11/20 14:45 12/11/20 15:44 Allergies: Allergies: Allergies Coded Allergies Type Severity Reaction Last Updated Verified No Known Drug Allergies 08/02/20 No Physical Exam: PE: Constitutional: Well developed, well nourished, no acute distress, non-toxic appearance. [] HENT: Normocephalic, atraumatic, bilateral external ears normal, oropharynx m oist, no oral exudates, nose normal. [] Eyes: PERRLA, EOMI, conjunctiva normal, no discharge. [] Neck: Normal range of motion, no tenderness, supple, no stridor. [] Cardiovascular:Heart rate regular rhythm, no murmur [] Lungs & Thorax: Bilateral breath sounds clear to auscultation [] Abdomen: Bowel sounds normal, soft, no tenderness, no masses, no pulsatile masses. [] Skin: Warm, dry, no erythema, no rash. [] Back: No tenderness, no CVA tenderness. [] Extremities: No tenderness, no cyanosis, no clubbing, ROM intact, no edema. [] Neurologic: Alert and oriented X 3, normal motor function, normal sensory function, no focal deficits noted. [] Psychologic: Affect normal, judgement normal, mood normal. [] Normal physical exam Current Patient Data: Labs: Laboratory Tests Test 12/11/20 14:23 POC Urine HCG, Qualitative Hcg positive (Negative) EKG: EK and read by Dr. Bonilla as sinus rhythm and no STEMI Radiology/Procedures: Radiology/Procedures: [] Impression: [facility] [address] [place], [place] [id number] IMAGING REPORT Signed PATIENT: ROSIE WILKERSON LACCOUNT: [id number] : 1980 LOCATION: ER AGE: 40 SEX: F EXAM STATUS: REG ER ORD. PHYSICIAN: EHSAN WESTON APRN REASON: vaginal spotting, PROCEDURE: OB <14 WKS W/TV US OB <14 WKS +TV History: Reason: vaginal spotting, / Spl. Instructions: / History: Comparison: July 24, 2020. Technique: Grayscale and color Doppler imaging of the pelvis was performed using transabdominal technique. Findings: The uterus measures 11.0 x 7.0 x 7.0 cm. Single intrauterine gestational sac with oblong appearance. Yolk sac is identified. pole is not identified. Gestational sac measures 2.5 cm. Estimated gestational age by ultrasound 7 weeks 4 days. Right ovary measures 3.2 x 2.4 x 2.5 cm. Hemorrhagic right ovarian follicle measures 2.1 cm. Left ovary measures 4.8 x 3.1 x 2.5 cm. Dominant left ovarian follicle measures 2.9 cm. Normal Doppler flow to the ovaries bilaterally. No adnexal masses are seen. IMPRESSION: 1. Intrauterine gestational sac without pole. Findings suspicious for failed early . Recommend short-term ultrasound follow-up and serial beta-hCG testing. Electronically signed by: Dutch Parham DO (12/11/2020 3:53 PM) [facility] DICTATED and SIGNED BY: DUTCH PARHAM DO DATE: 12/11/20 [id number] Course & Med Decision Making: Course & Med Decision Making Pertinent Labs and Imaging studies reviewed. (See chart for details) See HPI. Alert and oriented x4. Ambulatory with a steady gait. No extremity swelling. No calf tenderness. Lungs are clear to auscultation all lobes. Vital signs are within normal limits. Afebrile. Abdomen is soft and nontender. No CVA tenderness. Well's and PERC negative. Patient states that her last period was probably around October 24 but she is unsure. Pelvic Exam: Mathematics Department Chair present Abdomen: Nontender External Genitalia: Normal Skin Speculum: Normal vaginal mucosa, normal cervical discharge Bimanual: No adnexal masses or tenderness, No CMT Urine positive for trichomonas. Patient is given Rocephin and azithromycin in the ED. patient educated that she be called in 48 hours only if something comes back positive. She will be sent home on Flagyl. Patient is given 1 L of normal saline in the ED. She states she is feeling better. [] Jocelynon Disclaimer: Dragtea Disclaimer: This electronic medical record was generated, in whole or in part, using a voice recognition dictation system. Departure Departure Impression: Primary Impression: Trichomoniasis Additional Impressions: Vaginal bleeding in Threatened miscarriage in early Disposition: 01 DC HOME SELF CARE/HOMELESS Condition: STABLE Referrals: NO PCP (PCP) GI GILMAN Jr, MD Patient Instructions: Sexually Transmitted Disease, Threatened Miscarriage, Trichomoniasis-Brief Additional Instructions: Follow-up with an OB as soon as possible for another blood test and ul trasound in 2 weeks. Take medication with food and as prescribed. Do not drink any alcohol with this medication as it will make you vomit. Make sure your sexual partner is treated for STDs. If you begin having severe vaginal bleeding and going through more than 1 pad an hour return to the emergency room. Drink plenty of fluids. Scripts Ondansetron (ONDANSETRON ODT) 4 Mg Tab.rapdis 1 TAB PO PRN Q6-8HRS, #16 TAB Prov: EHSAN WESTON APRN 12/11/20 Metronidazole (METRONIDAZOLE) 500 Mg Tablet 1 TAB PO BID for 7 Days, #14 TAB 0 Refills Prov: EHSAN WESTON APRN 12/11/20 EHSAN WESTON APRN Dec 11, 2020 14:55
[2020-12-11 15:03] LABS: BACTERIA,URINE FEW /HPF (0-FEW); TRICHOMONAS,URINE PRESENT
[2020-12-11 15:42] LABS: BASO % 1 % (0-3); EOS # 0.1 x10^3/uL (0.0-0.7); EOS % 1 % (0-3); HEMATOCRIT 37.9 % (36.0-47.0); HEMOGLOBIN 12.4 g/dL (12.0-15.5); LYMPH # 3.1 x10^3/uL (1.0-4.8); LYMPH % 42 % (24-48); MEAN CORPUSCULAR HEMOGLOBIN 26 pg (25-35); MEAN CORPUSCULAR HGB CONC 33 g/dL (31-37); MEAN CORPUSCULAR VOLUME 80 fL (79-100); MONO # 0.9 x10^3/uL (0.0-1.1); MONO % 13 % (0-9); NEUT # 3.2 x10^3/uL (1.8-7.7); NEUT % 43 % (31-73); PLATELET COUNT 206 x10^3/uL (140-400); RED BLOOD COUNT 4.74 x10^6/uL (3.50-5.40); RED CELL DISTRIBUTION WIDTH 13.9 % (11.5-14.5); WHITE BLOOD COUNT 7.3 x10^3/uL (4.0-11.0)
[2020-12-11] MEDS ORDERED: cefTRIAXone IV Push 1 GM VIAL. IVP ONE (15:45)
[2020-12-11] MEDS ORDERED: ONDANSETRON PF 4 MG/2 ML VIAL. IVP ONE (15:45)
[2020-12-11] MEDS ORDERED: AZITHROMYCIN 250 MG TABLET. PO ONE (15:45)
--- NOTE | 2020-12-11 15:55 | RAD ---
US OB <14 WKS +TV History: Reason: vaginal spotting, / Spl. Instructions: / History: Comparison: July 24, 2020. Technique: Grayscale and color Doppler imaging of the pelvis was performed using transabdominal techn ique. Findings: The uterus measures 11.0 x 7.0 x 7.0 cm. Single intrauterine gestational sac with oblong appearance. Yolk sac is identified. pole is not identified. Gestational sac measures 2.5 cm. Estimated gestational age by ultrasound 7 weeks 4 days. Right ovary measures 3.2 x 2.4 x 2.5 cm. Hemorrhagic right ovarian follicle measures 2.1 cm. Left ovary measures 4.8 x 3.1 x 2.5 cm. Dominant left ovarian follicle measures 2.9 cm. Normal Doppler flow to the ovaries bilaterally. No adnexal masses are seen. IMPRESSION: 1. Intrauterine gestational sac without pole. Findings suspicious for failed early . Recommend short-term ultrasound follow-up and serial beta-hCG testing. Electronically signed by: Dutch Parham DO (12/11/2020 3:53 PM) [facility]
[2020-12-11] MEDS ORDERED: METR-34 PO (16:43)
[2020-12-11] MEDS ORDERED: ONDA4TAB12 PO (16:43)
[2020-12-11 16:55] LABS: CREATININE 0.8 mg/dL (0.6-1.0); GFR 96.6; POTASSIUM 3.9 mmol/L (3.5-5.1)
[2020-12-11 17:01] LABS: ALBUMIN 3.3 g/dL (3.4-5.0); ALBUMIN/GLOBULIN RATIO 0.8 (1.0-1.7); TOTAL BILIRUBIN 0.2 mg/dL (0.2-1.0); TOTAL PROTEIN 7.6 g/dL (6.4-8.2)
[2020-12-11 17:45] VITALS: BP 122/56
--- NOTE | 2020-12-11 17:45 | EKG ---
[facility] [address] [place] [address] Test Date: 2020-12-11 Test Time: 15:52:12 Pat Name: ROSIE WILKERSON Department: Room: Gender: F Train Reservation Clerk: : 1980 Requested By: EHSAN WESTON Order Number: [id number] Reading MD: Measurements Intervals [place] Rate: 72 P: 26 MO: 138 QRS: 54 QRSD: 82 T: 31 QT: 348 QTc: 382 Interpretive Statements SINUS RHYTHM OTHERWISE NORMAL ECG RI6.02 No previous ECG available for comparison
[2020-12-12 19:10] LABS: GC PROBE Negative (Negative)
== END 2020-12-11 18:10 | disposition home or self-care (01) ==
LOC: ER 13:49
DX: O20.0 Threatened abortion (principal); A59.01 Trichomonal vulvovaginitis; R42 Dizziness and giddiness; R35.0 Frequency of micturition; F17.200 Nicotine dependence, unspecified, uncomplicated; Z98.890 Other specified postprocedural states; Z3A.01 Less than 8 weeks gestation of pregnancy
CPT/HCPCS: 36415; 76801; 76817; 80053; 80307; 81001; 81025; 83690; 84484; 84702; 85025; 86850; 86900; 86901; 87086; 87491; 87591; 93005; 96361; 96374; 96375; 99285; J0696; J2405; J7030; Q0111

== ENCOUNTER 2021-01-09 12:45 | Emergency (ER) | payer MEDICAID ==
[~2021-01-09] VITALS: Ht 170.2 cm; Wt 166.6 kg
[~2021-01-09 12:45] MED LIST changes: +METR-34 PO; +ONDA4TAB12 PO
--- NOTE | 2021-01-09 13:19 | PHYS DOC ---
Past Medical History Past Medical History: No Pertinent History Past Surgical History: Other Additional Past Surgical Histo: RT ANKLE SURGERY, D&C Smoking Status: Current Every Day Smoker Alcohol Use: Occasionally Drug Use: None General Adult EDM: Chief Complaint: VAGINAL BLEEDING HPI: HPI: Patient is a 40 year old female 6 para 5 currently 13 weeks presenting to the ED today complaining of vaginal bleeding/spotting in that occurred once yesterday and has occurred this morning. Patient states she was seen by her [employer] [employer] 2 days ago patient denies any abdominal pain or cramping. Denies any nausea vomiting. Review of Systems: Review of Systems: Constitutional: Denies fever or chills. [] Eyes: Denies change in visual acuity. [] HENT: Denies nasal congestion or sore throat. [] Respiratory: Denies cough or shortness of breath. [] Cardiovascular: Denies chest pain or edema. [] GI: Reports vaginal bleeding/spotting in . Denies abdominal pain, nausea, vomiting, bloody stools or diarrhea. [] : Denies dysuria. [] Musculoskeletal: Denies back pain or joint pain. [] Integument: Denies rash. [] Neurologic: Denies headache, focal weakness or sensory changes. [] Psychiatric: Denies depression or anxiety. [] Heart Score: C/O Chest Pain: N/A Risk Factors: Risk Factors: DM, Current or recent (<one month) smoker, HTN, HLP, family history of CAD, obesity. Risk Scores: Score 0 - 3: 2.5% MACE over next 6 weeks - Discharge Home Score 4 - 6: 20.3% MACE over next 6 weeks - Admit for Clinical Observation Score 7 - 10: 72.7% MACE over next 6 weeks - Early Invasive Strategies Allergies: Allergies: Allergies Coded Allergies Type Severity Reaction Last Updated Verified No Known Drug Allergies 08/02/20 No Physical Exam: PE: Constitutional: Well developed, well nourished, no acute distress, non-toxic appearance. [] HENT: Normocephalic, atraumatic, bilateral external ears normal, oropharynx moist, no oral exudates, nose normal. [] Eyes: PERRLA, EOMI, conjunctiva normal, no discharge. [] Neck: Normal range of motion, no tenderness, supple, no stridor. [] Cardiovascular:Heart rate regular rhythm, no murmur [] Lungs & Thorax: Bilateral breath sounds clear to auscultation [] Abdomen: Bowel sounds normal, soft, no tenderness, no masses, no pulsatile masses. [] Morbidly obese patient. Exterior vaginal area is normal. Cervix is not visualized due to patient's body habitus. There is trace amount of brownish blood in the vaginal vault, no CMT, no adnexal tenderness Skin: Warm, dry, no erythema, no rash. [] Back: No tenderness, no CVA tenderness. [] Extremities: No tenderness, no cyanosis, no clubbing, ROM intact, no edema. [] Neurologic: Alert and oriented X 3, normal motor function, normal sensory function, no focal deficits noted. [] Psychologic: Affect normal, judgement normal, mood normal. [] Current Patient Data: Vital Signs: Vital Signs Date Time Temp Pulse Resp B/P (MAP) Pulse Ox O2 Delivery O2 Flow Rate FiO2 01/09/21 13:10 98.0 97 20 149/77 (101) 100 Room Air 98.0 EKG: EKG: [] Radiology/Procedures: Radiology/Procedures: []PROCEDURE: OB <14 WKS W/TV OB ultrasound less than 14 weeks and transvaginal OB ultrasound HISTORY: Vaginal bleeding and Sonographic examination of the was performed by transabdominal and endovaginal technique. Multiple static images were obtained. Ultrasound pelvis complete transabdominal: There is a gestational sac and yolk sac. There is a pole. The left ovary appears normal with normal blood flow. The right ovary is not seen. Transvaginal OB ultrasound: The crown-rump length of 5.7 mm corresponds with 6 week 3 day gestational age. There is no detectable heartbeat. IMPRESSION: 1. Intrauterine measures 6 weeks 3 days gestational age. 2. No detectable heartbeat. This could be demise however, at this early gestational age and is difficult to detect a heartbeat. Recommend correlation with serial quantitative beta hCG. If the continues a short-term follow-up study could be performed or a structural survey would be performed at 18-21 weeks gestational age. Electronically signed by: Essie Ibarra III, MD (01/09/2021 2:26 PM) [facility] DICTATED and SIGNED BY: ESSIE IBARRA III, MD DATE: 01/09/21 [id number] 0 Course & Med Decision Making: Course & Med Decision Making Pertinent Labs and Imaging studies reviewed. (See chart for details) This is a 40-year-old female patient presented to the ED today with complaints of vaginal bleeding spotting in , symptoms began 2 days ago. Positive urine hCG, beta-hCG 26,811. Urine analysis negative for infection. Wet prep noted for trichomonas and bacterial vaginosis. Patient was treated in the ED. OB ultrasound noted for an IUP 6 weeks 3 days, no detectable heartbeat. This could be demise however, at this early gestational age and is difficult to detect a heartbeat. Recommend correlation with serial quantitative beta hCG. Blood group O+ I spoke to . He stated patient can go home and follow-up in his clinic as scheduled. She already has an appointment. Patient was instructed to return to the ED at any point she starts soaking more than 1 feminine pad an hour or have any other concerning symptoms Dragon Disclaimer: Dragtea Disclaimer: This electronic medical record was generated, in whole or in part, using a voice recognition dictation system. Departure Departure Impression: Primary Impression: Threatened miscarriage in early Additional Impressions: Trichomoniasis Bacterial vaginosis Disposition: 01 DC HOME SELF CARE/HOMELESS Condition: STABLE Referrals: NO PCP (PCP) GI GILMAN Jr, MD follow up as scheduled Patient Instructions: Threatened Miscarriage, [id number], Trichomoniasis Additional Instructions: You were evaluated in the emergency room, the ultrasound we did shows you are 6 weeks 3 days with no detectable heartbeat. This could be an early or demise. Please maintain bedrest, no sex, no heavy lifting. You were also positive for trichomonas, this is a sexually transmitted diseases. We treated in the emergency room. Do not have any intercourse until the bleeding has stopped and you have been seen by the [facility] [employer]. Please return to the emergency room at any point you have any concerning symptoms. Please ask you partner to get treatment for STDs Scripts Metronidazole (FLAGYL) 500 Mg Tablet 1 TAB PO BID, #10 TAB Prov: FINESSE HANSEN APRN 01/09/21 FINESSE HANSEN APRN Jan 09, 2021 13:19
[2021-01-09 13:42] LABS: BASO # 0.1 x10^3/uL (0.0-0.2); BASO % 1 % (0-3); EOS # 0.1 x10^3/uL (0.0-0.7); EOS % 2 % (0-3); HEMATOCRIT 36.3 % (36.0-47.0); HEMOGLOBIN 12.1 g/dL (12.0-15.5); LYMPH # 2.8 x10^3/uL (1.0-4.8); LYMPH % 51 % (24-48); MEAN CORPUSCULAR HEMOGLOBIN 27 pg (25-35); MEAN CORPUSCULAR HGB CONC 33 g/dL (31-37); MEAN CORPUSCULAR VOLUME 80 fL (79-100); MONO # 0.6 x10^3/uL (0.0-1.1); MONO % 10 % (0-9); NEUT % 36 % (31-73); PLATELET COUNT 208 x10^3/uL (140-400); RED BLOOD COUNT 4.57 x10^6/uL (3.50-5.40); RED CELL DISTRIBUTION WIDTH 13.5 % (11.5-14.5); WHITE BLOOD COUNT 5.5 x10^3/uL (4.0-11.0)
[2021-01-09 13:47] LABS: CALCIUM 8.7 mg/dL (8.5-10.1); CREATININE 0.7 mg/dL (0.6-1.0); GFR 112.7; POTASSIUM 3.8 mmol/L (3.5-5.1)
[2021-01-09 13:53] LABS: ALBUMIN 3.1 g/dL (3.4-5.0); ALBUMIN/GLOBULIN RATIO 0.8 (1.0-1.7); TOTAL BILIRUBIN 0.1 mg/dL (0.2-1.0); TOTAL PROTEIN 7.1 g/dL (6.4-8.2)
[2021-01-09 13:54] LABS: BILIRUBIN,URINE NEGATIVE (NEG); CLARITY,URINE CLEAR; COLOR,URINE YELLOW; NITRITE,URINE NEGATIVE (NEG); PH,URINE 5.5 (<5.0-8.0); PROTEIN,URINE NEGATIVE (NEG-TRACE)
[2021-01-09 14:04] LABS: BACTERIA,URINE MODERATE /HPF (0-FEW); RBC,URINE 0 /HPF (0-2); TRICHOMONAS,URINE PRESENT; WBC,URINE 0 /HPF (0-4)
--- NOTE | 2021-01-09 14:28 | RAD ---
OB ultrasound less than 14 weeks and transvaginal OB ultrasound HISTORY: Vaginal bleeding and Sonographic examination of the was performed by transabdominal and endovaginal technique. M ultiple static images were obtained. Ultrasound pelvis complete transabdominal: There is a gestational sac and yolk sac. There is a pole. The left ovary appears normal with normal blood flow. The right ovary is not seen. Transvaginal OB ultrasound: The crown-rump length of 5.7 mm corresponds with 6 week 3 day gestational age. There is no detectable heartbeat. IMPRESSION: 1. Intrauterine measures 6 weeks 3 days gestational age. 2. No detectable heartbeat. This could be demise however, at this early gestational age and is difficult to detect a heartbeat. Recommend correlation with serial quantitative beta hCG. If the preg darian continues a short-term follow-up study could be performed or a structural survey would be performed at 18-21 weeks gestational age. Electronically signed by: Carlos Ibarra III, MD (01/09/2021 2:26 PM) [facility]
[2021-01-09 15:00] VITALS: BP 152/73
[2021-01-09] MEDS ORDERED: AZITHROMYCIN 250 MG TABLET. PO ONE (15:30)
[2021-01-09] MEDS ORDERED: metroNIDAZOLE 500 MG TABLET PO ONE (15:30)
[2021-01-09] MEDS ORDERED: METR500T PO (15:30)
[2021-01-09] MEDS ORDERED: cefTRIAXone IM 500 MG VIAL. IM ONE (15:30)
[2021-01-10 18:13] LABS: GC PROBE Negative (Negative)
== END 2021-01-09 15:38 | disposition home or self-care (01) ==
LOC: ER 12:45
DX: O20.0 Threatened abortion (principal); Z3A.01 Less than 8 weeks gestation of pregnancy; O23.591 Infection of other part of genital tract in pregnancy, first trimester; B96.89 Other specified bacterial agents as the cause of diseases classified elsewhere; A59.01 Trichomonal vulvovaginitis; O99.331 Smoking (tobacco) complicating pregnancy, first trimester
CPT/HCPCS: 36415; 76801; 76817; 80053; 81001; 81025; 84702; 85025; 86850; 86900; 86901; 87086; 87491; 87591; 96372; 99284; J0696; Q0111

== ENCOUNTER 2021-03-13 20:10 | Emergency (ER) | payer OTHER, MEDICAID ==
[~2021-03-13] VITALS: Ht 170.2 cm; Wt 163.8 kg
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
[2021-03-13] MEDS ORDERED: ACETAMINOPHEN 500 MG TABLET PO ONE (23:15)
[2021-03-13 23:23] VITALS: BP 149/82
== END 2021-03-13 23:23 | disposition home or self-care (01) ==
LOC: ER 20:10
DX: O9A.219 Injury, poisoning and certain other consequences of external causes complicating pregnancy, unspecified trimester (principal); S13.4XXA Sprain of ligaments of cervical spine, initial encounter; S00.03XA Contusion of scalp, initial encounter; M25.571 Pain in right ankle and joints of right foot; O99.330 Smoking (tobacco) complicating pregnancy, unspecified trimester; Z3A.00 Weeks of gestation of pregnancy not specified; V49.88XA Car occupant (driver) (passenger) injured in other specified transport accidents, initial encounter; Y92.488 Other paved roadways as the place of occurrence of the external cause; Y93.89 Activity, other specified; Y99.8 Other external cause status
CPT/HCPCS: 73610; 81025; 99283